=== PATIENT | male | born 1960 | race Caucasian/White ===

== ENCOUNTER 2016-09-27 00:58 | Emergency (ER) | payer OTHER ==
[~2016-09-27] VITALS: Ht 170.2 cm; Wt 64.8 kg
[~2016-09-27 00:58] MED LIST: ATORVASTATIN CA10 MG PO; Advair 250/50 Diskus IH; EFFEXOR PO; Effexor XR PO; LOTRISONE15 GM TP; METHYLPHENIDATE20 M1; PERPHENAZINE2 MG PO; PRILOSEC40 MG PO; Proventil,Ventolin H IH; RITALIN20 MG PO; RITALIN5 MG PO; RYZOLT100 MG PO; Ritalin PO; TRAMADOL HCL50 MG; TRAMADOL HCL50 MG PO; TRAZODONE HCL100 MG PO; TRAZODONE HCL300 MG PO; TRILAFON4 MG PO; VENLAFAXINE HC150 MG PO; ZITHROMAX Z-PA250 MG PO; [UNRECOGNIZED DRUG - REMARK]
[2016-09-27 01:54] LABS: BASOPHIL COUNT 0.1 K/uL (0-0.1); EOSINOPHIL (%) 4.6 % (0-5); EOSINOPHIL COUNT 0.5 K/uL (0-0.3); HEMATOCRIT 42.4 % (38.0-50.0); IMMATURE GRANULOCYTE (%) 0.2 % (0.0-0.7); IMMATURE GRANULOCYTE COUNT 0.2 K/uL; LYMPHOCYTE COUNT 1.6 K/uL (1.0-2.8); MCH 31.7 PG (29.0-34.0); MCHC 34.7 G/DL (30.0-36.0); MCV 91.6 FL (86-99); MEAN PLAT.VOLUME 10.1 uM^3 (9.0-12.4); MONOCYTE (%) 12.6 % (3-12); MONOCYTE COUNT 1.4 K/uL (0-0.8); NEUTROPHIL COUNT 7.3 K/uL (1.8-6.4); PLATELET COUNT 268 K/uL (156-360); RBC DIS.WIDTH-CV 13.5 % (11.8-14.6); RBC DIS.WIDTH-SD 44.3 % (39-53); RED BLOOD COUNT 4.63 M/uL (4.00-5.50); WHITE BLOOD COUNT 10.9 K/uL (4.1-10.2)
[2016-09-27 02:04] LABS: CHLORIDE 106 mEq/L (99-109); POTASSIUM 3.9 mEq/L (3.7-5.4); SODIUM 141 mEq/L (136-147)
[2016-09-27 02:05] LABS: GLUCOSE 106 mg/dL (70-99)
[2016-09-27 02:07] LABS: ANION GAP 8 MEQ/L (2-14)
[2016-09-27 02:09] LABS: GFR ESTIMATE (CALCULATED) > 59 mL/min/
[2016-09-27 02:10] LABS: UREA NITROGEN (BUN) 13 mg/dL (9-23)
[2016-09-27] MEDS ORDERED: VENTOLIN HFA18 GM IH (03:43)
[2016-09-27] MEDS ORDERED: DELTASONE20 M1 PO (03:43)
[2016-09-27 04:29] VITALS: BP 132/78
== END 2016-09-27 04:30 | disposition home or self-care (01) ==
LOC: EME 00:58
PROVIDERS: Personal Emergency Response Attendant
DX: J20.9 Acute bronchitis, unspecified (principal); F17.200 Nicotine dependence, unspecified, uncomplicated; J45.909 Unspecified asthma, uncomplicated
CPT/HCPCS: 71010; 80048; 85025; 94640; 99281; 99284; J7512; J7644; Q0177